=== PATIENT | female | born 2000 | race Hispanic/Latino ===

== ENCOUNTER → 2021-04-30 | Day surgery (SDC) | payer OTHER, BC ==
[~2021-04-30] MED LIST: ACETAMINOPHEN/CODEINE 300MG - 30MG TAB ONE; ALDACTONE50 MG PO; AMITRIPTYLINE H25 MG PO; BUPIVACAINE HCL 0.5% INJ 30 ML VIAL INJ ONE; DEXAMETHASONE SOD PHOS INJ 4 MG/ML VIAL ONE; FENTANYL CITRATE/PF 100MCG/2 ML INJ ONE; IMITREX4 MG/0.51; KETOROLAC TROMETHAMINE 30 MG/ML VIAL ONE; LIDOCAINE HCL 2% LOCAL INJ 5 ML SDV VIAL INJ ONE; MEPERIDINE HCL INJ 25 MG/ML VIAL ONE; MORPHINE SULFATE INJ 2 MG/ML SYR ONE; NEOSTIGMINE 1 MG/ML 10ML VIAL ONE; ONDANSETRON HCL INJ 2MG/ML 2ML 2 MG/ML VIAL ONE; POVIDONE IODINE 0.05% 0.05 % ML PO ONE; PROPOFOL IV EMULSION 10 MG/ML 20 ML VIAL ONE; SEVOFLURANE INHAL SOLN 250 ML PEN BTL ONE; SODIUM CHLORIDE 0.9% 50ML 50 ML ONE; TYLENOL # 31 EA PO; YAZ 28 TABLET1 EACH
[2021-04-30 09:45] VITALS: BP 120/81
== END | disposition home or self-care (01) ==
LOC: OR 05:26
PROVIDERS: ATTEND Specialist
DX: S82.62XA Displaced fracture of lateral malleolus of left fibula, initial encounter for closed fracture (principal); F41.9 Anxiety disorder, unspecified; X58.XXXA Exposure to other specified factors, initial encounter; Y93.01 Activity, walking, marching and hiking; Y92.89 Other specified places as the place of occurrence of the external cause; Z68.33 Body mass index [BMI] 33.0-33.9, adult
CPT/HCPCS: 27792; 76000; 81025; C1713 ×5; J0690; J1100; J1885; J2001; J2175; J2270; J2405; J2704; J3010; J2710